=== PATIENT | female | born 1980 | race American Indian/Alaskan Native ===

== ENCOUNTER 2018-12-24 22:26 | Emergency (ER) | payer MEDICAID, OTHER ==
[2018-12-24] MEDS ORDERED: NACL 0.9% 1000 ML 1,000 ML ONE (22:39)
[2018-12-24] MEDS ORDERED: MORPHINE ONE (22:39)
[2018-12-24] MEDS ORDERED: MORPHINE IV ONE (22:52)
[2018-12-24] MEDS ORDERED: NACL 0.9% 1000 ML 1,000 ML IV ONE (22:52)
[2018-12-24 22:53] LABS: Hematocrit 37.9 % (30.3-42.9); Hemoglobin 12.7 gm/dl (10.1-14.3); Mean Corpuscular HGB Conc 34 % (30-34); Mean Corpuscular Volume 96 fl (79-97); Platelet Count 282 K/mm3 (140-440); Red Blood Count 3.96 M/mm3 (3.65-5.03); Red Cell Distribution Width 16.3 % (13.2-15.2)
[2018-12-24 23:01] LABS: INR 0.88 (0.87-1.13)
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
[2018-12-24 23:02] LABS: Partial Thromboplastin Time 22.8 Sec. (24.2-36.6)
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
[2018-12-24 23:15] LABS: Alanine Aminotransferase 38 units/L (7-56); Albumin 4.5 g/dL (3.9-5); BUN/Creatinine Ratio 11; Blood Urea Nitrogen 10 mg/dL (7-17); Calcium 9.1 mg/dL (8.4-10.2); Hemolysis Index 10
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
[2018-12-25 00:47] LABS: Amphetamine Screen,Urine PRESUMPTIVE NEGATIVE; Benzodiazepines Screen,Urine PRESUMPTIVE NEGATIVE; Cocaine Screen,Urine PRESUMPTIVE NEGATIVE; Methadone Screen,Urine PRESUMPTIVE NEGATIVE; Opiate Screen,Urine PRESUMPTIVE NEGATIVE
[2018-12-25 00:58] LABS: Amorphous Crystals,Urine 1+; Bilirubin,Urine NEG (Negative); Blood,Urine SM (Negative); Color,Urine Yellow (Yellow); Hyaline Casts,Urine 9 /LPF; Mucus,Urine FEW /HPF; Protein,Urine <15 mg/dL mg/dL (Negative); Urobilinogen,Urine < 2.0 mg/dL (<2.0)
[2018-12-25] MEDS ORDERED: K-DUR PO ONE ×2 (00:59→01:28)
[2018-12-25] MEDS ORDERED: SUBLIMAZE IV ONE (01:00)
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
[2018-12-25] MEDS ORDERED: BOOSTRIX IM ONE (01:18)
[2018-12-25 01:21] LABS: Cannabinoid Screen,Urine PRESUMPTIVE POSITIVE
[2018-12-25 01:41] LABS: Band Neutrophils # (Manual) 5.9 K/mm3; Basophils % (Manual) 0 % (0.0-1.8); Monocytes % (Manual) 0 % (0.0-7.3); Total Cells Counted 100
[2018-12-25 01:42] LABS: RBC Morphology Normal
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
[2018-12-25 04:23] VITALS: BP 105/66
== END 2018-12-25 04:48 | disposition home or self-care (01) ==
LOC: ED 22:26 → EDBD 22:26 → ED 12-25 04:48
DX: S30.811A Abrasion of abdominal wall, initial encounter (principal); S70.212A Abrasion, left hip, initial encounter; S30.810A Abrasion of lower back and pelvis, initial encounter; S50.312A Abrasion of left elbow, initial encounter; F17.200 Nicotine dependence, unspecified, uncomplicated; V43.52XA Car driver injured in collision with other type car in traffic accident, initial encounter; Y93.89 Activity, other specified; Y92.488 Other paved roadways as the place of occurrence of the external cause; Y99.8 Other external cause status; R07.9 Chest pain, unspecified
CPT/HCPCS: 36415; 70450; 71045; 71260; 72125; 72170; 74018; 74177; 80053; 80307; 81001; 82550; 84703; 85007; 85025; 85610; 85730; 90471; 90715; 93005; 93010; 96374; 96375; 99285; J2270; J3010; J7030; Q9967; 80320; G0480